=== PATIENT | male | born 1955 | race Caucasian/White ===

== ENCOUNTER → 2019-10-27 08:44 | Outpatient (CLI) | payer OTHER, SELFPAY ==
--- NOTE | ~2019-10-27 | CT_ITS ---
EXAMINATION: CT lung screening DATE: 10/27/2019 09:13 INDICATION: History of tobacco dependence. Lung cancer screening. TECHNIQUE: Computed tomography (CT) of the chest was performed without intravenous contrast. The dose -length product was 156.03 mGy-cm. Automated exposure control and iterative reconstruction technique were employed. COMPARISON: CT dated 10/16/2017 FINDINGS: Stable 4 mm groundglass nodule right middle lobe. Stable 5 mm left lower lobe nodule. Stabl e 4 mm right upper lobe nodule, image 40. No new pulmonary nodules or masses. Mild emphysema. No endo bronchial lesions. Heart size normal. No significant pleural or pericardial abnormality. There is ath erosclerosis. The upper abdomen is unremarkable. Mild thoracic spondylosis. IMPRESSION: 1. Lung-RADS category 2: Benign appearance or behavior. Continue annual screening with noncontrast lo w-dose chest CT in 12 months. Reviewed, dictated and finalized at location B. IMPRESSION: 1. Lung-RADS category 2: Benign appearance or behavior. Continue annual screeni ng with noncontrast low-dose chest CT in 12 months.
== END ==
PROVIDERS: PCP Internal Medicine; Visit Provider Internal Medicine
DX: F17.210 Nicotine dependence, cigarettes, uncomplicated (principal)
CPT/HCPCS: G0297

== ENCOUNTER → 2020-12-13 08:48 | Outpatient (CLI) | payer OTHER, SELFPAY ==
--- NOTE | ~2020-12-13 | CT_ITS ---
EXAMINATION: CT lung screening DATE: 12/13/2020 09:01 INDICATION: Personal history of nicotine dependence, current smoker with 35 pack year history TECHNIQUE: Computed tomography (CT) of the chest was performed without intravenous contrast. The dose -length product (DLP) was 143.32 mGy-cm. Automated exposure control and iterative reconstruction tech [employer] were employed. COMPARISON: 10/27/2019 FINDINGS: There is mild emphysema. A stable 4 mm nodule is present in the right upper lobe on image 3 9. There is a stable 5 mm nodule of the left lower lobe. No new pulmonary nodules are identified. The lungs are free of acute opacities. There is no pleural effusion or pneumothorax. No pathologically e nlarged thoracic lymph nodes are identified. The heart size is normal. Mild bilateral gynecomastia is noted. There is moderate thoracic spondylosis. IMPRESSION: 1. Lung-RADS category 2: Benign appearance or behavior. Continue annual screening with noncontrast lo w-dose chest CT in 12 months. Reviewed, dictated and finalized at location A. IMPRESSION: 1. Lung-RADS category 2: Benign appearance or behavior. Continue annual screeni ng with noncontrast low-dose chest CT in 12 months.
== END ==
PROVIDERS: PCP Internal Medicine; Visit Provider Internal Medicine
DX: Z12.2 Encounter for screening for malignant neoplasm of respiratory organs (principal); F17.210 Nicotine dependence, cigarettes, uncomplicated
CPT/HCPCS: 71271

== ENCOUNTER → 2021-04-24 10:31 | Outpatient (CLI) | payer OTHER, SELFPAY ==
--- NOTE | ~2021-04-24 | CT_ITS ---
EXAMINATION: CT thoracic spine wo con DATE: 04/24/2021 10:58 INDICATION: Low thoracic spine pain. Abnormal MRI. TECHNIQUE: Computed tomography (CT) of the thoracic spine was performed without intravenous contrast. Automated exposure control and iterative reconstruction technique were employed. The dose-length pro duct was 858.87 mGy-cm. COMPARISON: Chest CT 12/13/2020 FINDINGS: There is mild emphysema. Bone alignment is normal. There is mild chronic anterior wedging o f T1, T6, T7, T9, T11, and T12 vertebral bodies. There is moderately decreased disc height from T3-T4 through T5-T6, moderately decreased disc height at T6-T7, T7-T8, and mildly decreased disc height at T8-T9, T9-T10, and T12 10-T11. There are bridging endplate osteophytes at T9-T10. There are endplate osteophytes at most levels. At T7-T8, there is a central extrusion with mild central canal stenosis. The discs are bulging at T6-T7 and T8-T9 with mild central canal stenosis. There is multilevel facet joint osteoarthritis, mild in most levels. No neural foraminal stenosis. IMPRESSION: 1. Moderate thoracic spondylosis. Reviewed, dictated and finalized at location B. UCTION HARDENER
== END ==
PROVIDERS: PCP Internal Medicine; Visit Provider Internal Medicine
DX: M47.814 Spondylosis without myelopathy or radiculopathy, thoracic region (principal)
CPT/HCPCS: 72128

== ENCOUNTER → 2022-03-31 08:04 | Outpatient (CLI) | payer MEDICARE, OTHER, SELFPAY ==
--- NOTE | ~2022-03-31 | CT_ITS ---
EXAMINATION: CT lung screening DATE: 03/31/2022 08:26 INDICATION: Nicotine dependence, cigarettes, uncomplicated TECHNIQUE: Computed tomography (CT) of the chest was performed without intravenous contrast. Addition al 3D reconstructions utilizing coronal maximum intensity projection (MIP) were performed. Automated exposure control and iterative reconstruction technique were employed. The dose-length product was 14 3.87 mGy-cm. COMPARISON: 12/13/2020 FINDINGS: Mild emphysema. No interval change in a few small pulmonary nodules in the right upper, right lower a nd left lower lobes, the 2 largest in the left lower lobe measuring 5 mm on images 91 and 88. No new or enlarging pulmonary nodules. No pneumonia, pulmonary edema or pleural effusion. Heart size is norm al. No pericardial effusion. Thoracic aorta is normal in caliber. No pathologically enlarged thoracic lymphadenopathy. Mild bilateral gynecomastia. Moderate thoracic spondylosis. IMPRESSION: 1. Lung-RADS category 2: Benign appearance or behavior. Continue annual screening with noncontrast lo w-dose chest CT in 12 months. Reviewed, dictated and finalized at location B. VISION SCRIPT WRITER IMPRESSION: 1. Lung-RADS category 2: Benign appearance or behavior. Continue annual screeni ng with noncontrast low-dose chest CT in 12 months.
== END ==
PROVIDERS: PCP Internal Medicine; Visit Provider Internal Medicine
DX: Z12.2 Encounter for screening for malignant neoplasm of respiratory organs (principal); F17.210 Nicotine dependence, cigarettes, uncomplicated
CPT/HCPCS: 71271